=== PATIENT | female | born 1960 | race African-American/Black ===

== ENCOUNTER 2016-10-03 19:38 | Emergency (ER) | payer OTHER ==
[~2016-10-03] VITALS: Ht 157.5 cm; Wt 78.9 kg
[~2016-10-03 19:38] MED LIST: ASPIRIN325 PO; CELECOXIB200 MG PO; CRESTOR10 MG PO; HYDROCHLOROTH12.5 M1 PO; JANUMET XR 1001 EACH PO; LANTUS100 UNIT/M SUBQ; LEVEMIR; LISINOPRIL-HCT1 EAC1 PO; LISINOPRIL10 MG PO; LYRICA 50 MG50 MG PO; METFORMIN HCL500 MG PO; METOPROLOL SUCC50 MG PO; NAPROSYN500 MG PO; PRINIVIL20 M1 PO; ROBAXIN 750 MG750 M1 PO; SIMVASTATIN40 MG PO; TESSALON PERLE100 MG PO; TRAMADOL HCL50 MG PO
[2016-10-03] MEDS ORDERED: GLUCOPHAGE1000 MG PO (19:45)
[2016-10-03] MEDS ORDERED: HYDROCHLOROTH12.5 M1 PO (19:46)
[2016-10-03] MEDS ORDERED: ARIPIPRAZOLE2 MG PO (19:46)
[2016-10-03] MEDS ORDERED: BRINTELLIX20 MG PO (19:47)
[2016-10-03] MEDS ORDERED: NORCO 5-325 TA1 EACH PO (19:54)
== END 2016-10-03 20:07 | disposition home or self-care (01) ==
LOC: ER 19:38
DX: M54.5 Low back pain (principal); I10 Essential (primary) hypertension; E11.9 Type 2 diabetes mellitus without complications; E78.00 Pure hypercholesterolemia, unspecified; F17.210 Nicotine dependence, cigarettes, uncomplicated; F12.10 Cannabis abuse, uncomplicated

== ENCOUNTER 2017-02-02 14:27 | Inpatient (IN) | payer OTHER ==
[~2017-02-02] VITALS: Ht 157.5 cm; Wt 77.1 kg
--- NOTE | ~2017-02-02 | EKG ---
[facility] [place] [address] ELECTROCARDIOGRAM REPORT Name: GWEN SANTOS Room #: [facility] Yusuf#: [id number] Admission: Attend Phys: Discharge: Date of : 62 Report #: [id number] THIS REPORT FOR: //name// [facility] ED Test Date: 2017-02-02 Test Time: 14:34:39 Pat Name: GWEN SANTOS Department: Room: Gender: F Meat Service Team Member: [id number] : 1960 Requested By: Nakul Brian Order Number: [id number] MD: Measurements Intervals Carey Rate: 84 P: 36 KS: 164 QRS: -33 QRSD: 86 T: 70 QT: 377 QTc: 446 Interpretive Statements Sinus rhythm Probable left atrial enlargement Abnormal R-wave progression, early transition Left ventricular hypertrophy Compared to ECG 06/07/2016 12:33:21 No significant changes [email or web address] By: 1434 1434 Epiphany Epiphany, /EPI
[~2017-02-02 14:27] MED LIST changes: +ARIPIPRAZOLE2 MG PO; +BRINTELLIX20 MG PO; +GLUCOPHAGE1000 MG PO; +NORCO 5-325 TA1 EACH PO
[2017-02-02] MEDS ORDERED: IRON325 PO (14:40)
[2017-02-02] MEDS ORDERED: REXULTI2 MG PO (14:40)
[2017-02-02 15:03] LABS: ABSOLUTE NEUTROPHILS 3.9 thou/uL (1.4-8.2); EOSINOPHILS 0.6 % (0.0-3.0); HEMATOCRIT 36.7 % (37.0-47.0); HEMOGLOBIN 11.9 gm/dL (12.0-15.0); MCH 21.7 pg (26.0-34.0); MCHC 32.3 g/dL (28.0-37.0); MCV 67.3 fL (80.0-100.0); MONOCYTES 7.8 % (1.0-8.0); PLATELET COUNT 183 thou/uL (150-400); POLYS 58.6 % (36.0-66.0); RBC 5.46 mil/uL (4.20-5.00); RDW 18.6 % (10.5-14.5); WBC 6.7 thou/uL (4.0-11.0)
[2017-02-02 15:06] LABS: MANUAL DIFF NO
[2017-02-02 15:19] LABS: ANION GAP 4 mmol/L (7-16); BUN 16 mg/dL (7-18); CALCIUM 9.4 mg/dL (8.5-10.1); CHLORIDE 106 mmol/L (98-107); CO2 31 mmol/L (21-32); CREATININE 1.1 mg/dL (0.6-1.0); GLUCOSE 163 mg/dL (74-106); POTASSIUM 3.7 mmol/L (3.5-5.1); SODIUM 141 mmol/L (136-145)
[2017-02-02 15:24] LABS: ALBUMIN 3.8 g/dL (3.4-5.0); ALKALINE PHOSPHATASE 76 U/L (46-116); NT-PRO BRAIN NAT PEPTIDE 22 pg/mL (<300); SGOT 24 U/L (15-37); SGPT 34 U/L (30-65); TOTAL BILIRUBIN 0.4 mg/dL (<0.1-1.0); TOTAL PROTEIN 7.8 g/dL (6.4-8.2); TROPONIN-I < 0.04 ng/mL (<0.04-0.07)
[2017-02-02 15:45] LABS: ANISOCYTOSIS 1+; HYPOCHROMASIA 1+; MICROCYTES FEW
[2017-02-02 16:06] VITALS: BP 122/70
[2017-02-02 16:41] VITALS: BP 122/70
[2017-02-02 17:08] VITALS: BP 149/93
[2017-02-02 19:13] VITALS: BP 146/95
[2017-02-03 05:13] VITALS: BP 94/61
[2017-02-03 07:22] VITALS: BP 110/73
[2017-02-03 12:00] VITALS: BP 125/81
[2017-02-03 16:00] VITALS: BP 130/88
[2017-02-03 17:50] VITALS: BP 130/88
== END 2017-02-03 18:30 | disposition home or self-care (01) | DRG 313 ==
LOC: ER 14:27 → 4W 15:39
PROVIDERS: Emergency Medicine
DX: R07.9 Chest pain, unspecified (principal); I12.9 Hypertensive chronic kidney disease with stage 1 through stage 4 chronic kidney disease, or unspecified chronic kidney disease; K21.9 Gastro-esophageal reflux disease without esophagitis; E78.00 Pure hypercholesterolemia, unspecified; E11.22 Type 2 diabetes mellitus with diabetic chronic kidney disease; D64.9 Anemia, unspecified; F17.210 Nicotine dependence, cigarettes, uncomplicated; N18.9 Chronic kidney disease, unspecified; Z79.899 Other long term (current) drug therapy; Z82.49 Family history of ischemic heart disease and other diseases of the circulatory system; Z79.4 Long term (current) use of insulin
CPT/HCPCS: 10047

== ENCOUNTER 2018-02-03 08:19 | Emergency (ER) | payer OTHER ==
[~2018-02-03] VITALS: Ht 160 cm; Wt 77.1 kg
[~2018-02-03 08:19] MED LIST changes: +IRON325 PO; +REXULTI2 MG PO
[2018-02-03] MEDS ORDERED: FLEXERIL PO (08:45)
[2018-02-03] MEDS ORDERED: NAPROSYN500 MG PO (08:45)
== END 2018-02-03 09:22 | disposition home or self-care (01) ==
LOC: ER 08:19
DX: M54.2 Cervicalgia (principal); M79.601 Pain in right arm; M79.602 Pain in left arm; I10 Essential (primary) hypertension; E11.9 Type 2 diabetes mellitus without complications; E78.00 Pure hypercholesterolemia, unspecified; F17.210 Nicotine dependence, cigarettes, uncomplicated; V89.2XXA Person injured in unspecified motor-vehicle accident, traffic, initial encounter; Y93.89 Activity, other specified; Y92.89 Other specified places as the place of occurrence of the external cause; Y99.8 Other external cause status

== ENCOUNTER 2018-08-02 14:14 | Emergency (ER) | payer OTHER ==
[~2018-08-02] VITALS: Ht 157.5 cm; Wt 79.4 kg
[~2018-08-02 14:14] MED LIST changes: +FLEXERIL PO
[2018-08-02] MEDS ORDERED: LISINOPRIL40 MG PO (14:23)
[2018-08-02] MEDS ORDERED: TYLENOL325 M1 PO (14:43)
[2018-08-02] MEDS ORDERED: LOMOTIL TABLET1 EACH PO (14:44)
[2018-08-02 14:49] VITALS: BP 185/102
== END 2018-08-02 15:06 | disposition home or self-care (01) ==
LOC: ER 14:14
DX: M54.5 Low back pain (principal); R10.9 Unspecified abdominal pain; F17.210 Nicotine dependence, cigarettes, uncomplicated; E78.5 Hyperlipidemia, unspecified; I10 Essential (primary) hypertension; E11.9 Type 2 diabetes mellitus without complications; E78.00 Pure hypercholesterolemia, unspecified; Z86.2 Personal history of diseases of the blood and blood-forming organs and certain disorders involving the immune mechanism; Z79.4 Long term (current) use of insulin

== ENCOUNTER 2019-08-28 10:45 | Emergency (ER) | payer OTHER ==
[~2019-08-28] VITALS: Ht 157.5 cm; Wt 64.9 kg
[~2019-08-28 10:45] MED LIST changes: +LISINOPRIL40 MG PO; +LOMOTIL TABLET1 EACH PO; +TYLENOL325 M1 PO
[2019-08-28 20:33] VITALS: BP 138/75
== END 2019-08-28 20:34 | disposition home or self-care (01) ==
LOC: ER 10:45
DX: I10 Essential (primary) hypertension (principal); E11.9 Type 2 diabetes mellitus without complications; E78.00 Pure hypercholesterolemia, unspecified; F17.210 Nicotine dependence, cigarettes, uncomplicated; F12.90 Cannabis use, unspecified, uncomplicated

== ENCOUNTER 2020-07-30 10:11 | Emergency (ER) | payer OTHER ==
[~2020-07-30] VITALS: Ht 157.5 cm; Wt 69.0 kg
[2020-07-30 11:03] LABS: HEMATOCRIT 38.1 % (37.0-47.0); MCH 21.8 pg (26.0-34.0); MCHC 31.5 g/dL (28.0-37.0); MCV 69.3 fL (80.0-100.0); PLATELET COUNT 219 thou/uL (150-400); RBC 5.49 mil/uL (4.20-5.00); RDW 17.2 % (10.5-14.5); WBC 5.8 thou/uL (4.0-11.0)
[2020-07-30 12:07] LABS: ABSOLUTE NEUTROPHILS 3.5 thou/uL (1.4-8.2); PLATELET ESTIMATE NORMAL
[2020-07-30 13:40] LABS: ANION GAP 11 mmol/L (7-16); BUN 16 mg/dL (7-18); CALCIUM 8.8 mg/dL (8.5-10.1); CHLORIDE 103 mmol/L (98-107); CO2 25 mmol/L (21-32); GLUCOSE 280 mg/dL (74-106); POTASSIUM 3.8 mmol/L (3.5-5.1); SODIUM 139 mmol/L (136-145)
[2020-07-30 13:58] LABS: ALBUMIN 3.7 g/dL (3.4-5.0); SGOT 16 U/L (15-37); SGPT 28 U/L (30-65); TOTAL BILIRUBIN 0.4 mg/dL (0.2-1.0); TOTAL PROTEIN 7.5 g/dL (6.4-8.2); TROPONIN-I <0.06 ng/mL (<0.06)
[2020-07-30 14:10] VITALS: BP 181/98
--- NOTE | 2020-07-31 07:35 | EKG ---
[place] [address] [place] [address] ELECTROCARDIOGRAM REPORT Name: GWEN SANTOS Room #: [facility] Yusuf#: [id number] Admission: 07/30/20 Attend Phys: Discharge: 07/30/20 Date of : 62 Report #: [id number] [facility] ED Test Date: 2020-07-30 Test Time: 10:16:02 Pat Name: GWEN SANTOS Department: Room: Gender: F Insulator Helper: MEGAN : 1960 Requested By: Hector Peng Order Number: [id number] MD: Moody Del Real Measurements Intervals [place] Rate: 98 P: 35 MS: 173 QRS: -44 QRSD: 90 T: 104 QT: 352 QTc: 450 Interpretive Statements Pacemaker spikes or artifacts Sinus rhythm Probable left atrial enlargement Abnormal R-wave progression, early transition Left ventricular hypertrophy Nonspecific T abnormalities, lateral leads Compared to ECG 02/02/2017 14:34:39 T-wave abnormality now present Early repolarization no longer present Electronically Signed On 07-31-2020 7:35:28 SURVEY WORKER by Moody Del Real [email or web address] <ELECTRONICALLY SIGNED> By: Moody Del Real MD, FACC 07/31/20 0735 [id number] Moody Del Real MD, FAC /EPI
== END 2020-07-30 14:11 | disposition home or self-care (01) ==
LOC: ER 10:11
PROVIDERS: Emergency Medicine
DX: R07.89 Other chest pain (principal); I10 Essential (primary) hypertension; E11.9 Type 2 diabetes mellitus without complications; E78.00 Pure hypercholesterolemia, unspecified; F17.210 Nicotine dependence, cigarettes, uncomplicated; Z79.899 Other long term (current) drug therapy; Z79.4 Long term (current) use of insulin